=== PATIENT | female | born 1980 | race Caucasian/White ===

== ENCOUNTER → 2016-03-18 | Outpatient (CLI) | payer OTHER ==
--- NOTE | 2016-03-18 22:27 | WWHP ---
DATE OF DICTATION: 03/18/2016 CHIEF COMPLAINT: The patient is here for her routine gynecologic exam. HISTORY OF PRESENT ILLNESS: This is a 35-year-old G2, P1-0-1-1 with an LMP of 02/07/16. The patient was on oral contraception until about 1 to 2 months ago, when her prescription ran out. She has been using condoms since then. She would like to be restarted on control pills. She was given steroid injections for eczema, and she believes this is causing her period to be a little bit late. The patient is without complaints. PAST MEDICAL HISTORY: Eczema. She denies any other medical problems. MEDICATIONS: She uses a steroid cream for her eczema p.r.n. ALLERGIES: NO KNOWN DRUG ALLERGIES. PAST SURGICAL HISTORY: Unremarkable. PAST OB HISTORY: One voluntary termination of followed by a vaginal delivery. 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 She has no other history of STDs. She states her periods are generally regular every month, even without control pills. SOCIAL HISTORY: She quit smoking in 2011. She has about 6 to 12 alcoholic drinks per week and denies drug use. She is currently unemployed. She is and has been with her boyfriend for about 6 months but does not live with him. FAMILY HISTORY: Unremarkable. REVIEW OF SYSTEMS: She has lost about 15 pounds over the last 2 months, and this has been with diet. She denies respiratory, cardiac or GI problems. PHYSICAL EXAM: Blood pressure 131/84. Height 5 feet 6 inches. Weight 201 pounds. Temperature 98.0, pulse 77. This is a well-developed, well-nourished white female who is alert and oriented x3, in no acute distress. HEENT: She has several facial piercings. HEENT is otherwise unremarkable. NECK: Supple without mass or thyromegaly. CHEST AND LUNGS: Clear to auscultation. HEART: Regular rate and rhythm. Breasts are without mass or discharge. There is bilateral nipple piercing. Axillary exam negative for adenopathy. BACK: Negative for CVA tenderness. ABDOMEN: Soft, nontender, without palpable masses. PELVIC EXAM: External genitalia reveal a piercing in the area of the clitoris. External genitalia otherwise unremarkable. Cervix and vagina appear normal. There is no unusual vaginal discharge, no cervical motion tenderness. Uterus is midposition, nongravid size and nontender. There are no palpable adnexal masses or tenderness. Rectal exam is negative for mass or tenderness. EXTREMITIES: Nontender. IMPRESSION: Nxihfy-[id number]-hdyl-old gynecologically healthy female requesting oral contraception. PLAN: 1. Pap smear was performed. 2. Self breast examination was discussed. 3. GC and Chlamydia testing from the cervix has been obtained. Blood STD testing was declined by the patient. 4. The patient will start the control pills the Thursday following the onset of her next normal menstrual period. If she does not start a normal period in the next few weeks or if there is any chance of her being , she was instructed to check for . In this case, if she was , she is not to start the control pills. A prescription for Reclipsen control was given to the patient for 3 packs at a time with 3 refills. 5. She will return in one year. NEEMA
== END | disposition home or self-care (01) ==
LOC: WWCWWP 12:22
PROVIDERS: ATTEND Obstetrics & Gynecology
DX: Z11.3 Encounter for screening for infections with a predominantly sexual mode of transmission (principal)
CPT/HCPCS: 87491; 87591

== ENCOUNTER → 2017-03-25 | Outpatient (CLI) | payer OTHER ==
--- NOTE | 2017-03-25 10:01 | WWHP ---
[facility] - HISTORY AND PHYSICAL DATE OF SERVICE: 03/25/2017 CHIEF COMPLAINT: The patient is here for her routine gynecologic exam and for refill of her control pill prescription. HPI: This is a 36-year-old, G2, P1-0-1-1 with an LMP of 03/03/2017. She is on Reclipsen oral contraceptive for control. She states in July of 2016 she states she developed sores in the genital area. She was seen at an urgent care clinic and she was diagnosed with genital herpes. She did use some type of antiviral medication at that time, which gave her a headache. She states the sores resolved. They were painful at the time. She states she has not had any recurrence of the sores since then. PAST MEDICAL HISTORY: Eczema, currently not requiring medication. MEDICATION: Reclipsen oral contraception 1 daily. ALLERGIES: No known drug allergies. 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 SOCIAL HISTORY: She quit smoking in 2011 and denies any smoking at this time. She has about 6 alcohol containing drinks per week and denies drug use. She has been with her boyfriend since 2015 and does not live with him. 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 FAMILY HISTORY: Unremarkable. REVIEW OF SYSTEMS: She has gained 26 pounds over the last year. She denies respiratory, cardiac or GI problems. PHYSICAL EXAM: Blood pressure 136/80, height 5 feet 7 inches, weight 227 pounds, BMI 36, temperature 98.2, pulse 93. This is a well-developed, heavyset white female, who is alert and oriented x3, in no acute distress. HEENT is within normal limits. She does have several facial piercings. NECK: Supple without mass or thyromegaly. CHEST AND LUNGS: Clear to auscultation. HEART: Regular rate and rhythm. Breasts are without mass or discharge. She does have bilateral nipple piercing. Axillary exam is negative for adenopathy. BACK: Negative for CVA tenderness. ABDOMEN: Soft, nontender, without palpable masses. PELVIC EXAM: Normal external genitalia with a piercing of the clitoral muir. There are no lesions. Cervix and vagina appear normal. There is no unusual vaginal discharge and there is no cervical motion tenderness. The uterus is mid position, nongravid size and nontender. There are no palpable adnexal masses or tenderness. Rectal exam is negative for mass or tenderness. EXTREMITIES: Nontender. IMPRESSION: A 36-year-old gynecologically healthy female doing well on oral contraception. PLAN: 1. Pap smear was deferred since she had a normal 1 last year. 2. Self-breast examination was discussed. 3. The patient will continue on oral contraception at this time. I have recommended that she periodically check her own blood pressure. If she is having blood pressure elevations, she was instructed to call me. 4. We have discussed her increase in weight. I have recommended good nutrition and exercise. 5. She will return in 1 year. 6. She will call if she has recurrence of the genital sores. 7. A prescription for the oral contraception was given to the patient for the upcoming year. MMODL / IJN: [id number] / NEEMA
== END | disposition home or self-care (01) ==
LOC: CANPRECLI → WWCWWP 08:33
PROVIDERS: ATTEND Obstetrics & Gynecology
DX: Z53.9 Procedure and treatment not carried out, unspecified reason (principal)

== ENCOUNTER → 2018-05-18 | Outpatient (CLI) | payer OTHER ==
[2018-05-18 09:21] VITALS: BP 144/78; PULSE 113; RESP 16; TEMP 97.6; BMI 33.5
--- NOTE | 2018-05-18 10:24 | P.HPOB ---
History of Present Illness H&P Date: 05/18/18 Chief Complaint: The patient is here for her routine gynecologic exam. This is a 38-year-old with an LMP of 05/09/2018. The patient is without gynecologic complaints. She discontinued the oral contraception last summer since she is no longer sexually active and is not seeing anybody at this time. She has been trying to lose weight with diet and exercise. During this process, she had higher energy levels initially, but seems to be less energetic recently. She has lost about 21 pounds over the last year. She has had one genital HSV outbreak in the past year. Review of Systems The patient has lost 21 pounds over the last year. She denies respiratory, cardiac, or G.I. problems. She has felt less energetic recently. Past Medical History Past Medical History: No Reported History Additional Past Medical History / Comment(s): Eczema. 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 History of Any Multi-Drug Resistant Organisms: None Reported Past Surgical History: No Surgical Hx Reported Past Anesthesia/Blood Transfusion Reactions: No Reported Reaction Past Psychological History: No Psychological Hx Reported Smoking Status: Light tobacco smoker (5 cigarettes per week) Past Alcohol Use History: Occasional (6 per week) Past Drug Use History: None Reported Additional History: She is and is currently not seen anybody at this time. 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 - Past Family History Mother Family Medical History: No Reported History Medications and Allergies Home Medications Medication Instructions Recorded Confirmed Type Iron 18 mg PO 05/18/18 History Allergies Allergy/AdvReac Type Severity Reaction Status Date / Time acyclovir AdvReac Unknown Unverified 05/18/18 09:16 Exam Vital Signs Temp Pulse Resp BP Pulse Ox 05/18/18 09:17 97.6 F 113 H 16 144/78 100 Intake and Output 05/17/18 05/18/18 05/18/18 22:59 06:59 14:59 Other: Weight 94.347 kg Height 5'6", weight 208 pounds, BMI 33.6. This is a well-developed well-nourished white female who is alert and oriented times 3 in no acute distress. HEENT: Within normal limits. NECK: Supple without mass or thyromegaly. CHEST AND LUNGS: Clear to auscultation. HEART: Regular rate and rhythm. BREASTS: Are without mass or discharge. AXILLARY EXAM: Negative for adenopathy. BACK: Negative for CVA tenderness. ABDOMEN: Soft, nontender, without palpable masses. PELVIC EXAM: Normal external genitalia. Cervix and vagina appear normal. There is no unusual discharge. There is no evidence of prolapse. The uterus is midposition, nongravid size and nontender. There are no palpable adnexal masses or tenderness. RECTAL EXAM: negative for mass or tenderness and is negative for occult blood. EXTREMITIES: Nontender. IMPRESSION: 1. 38-year-old female with normal gynecologic exam. 2. She has not been sexually active recently and is not in need of control at this time. PLAN: 1. Pap smear was performed. 2. Self breast awareness was discussed with the patient. 3. STD prevention was discussed. I have stressed the importance of limiting sexual partners and using condoms if she is sexually active. 4. She is requesting screening blood tests. She currently does not have a primary care physician. I have recommended that she tried to establish with a primary care physician. Blood test today will include: CBC, TSH, comprehensive campaign out, and cholesterol. 5. She was advised to return in one year for her annual well woman exam.
[2018-05-18 11:02] LABS: HCT 44.3 % (34.0-46.0); HGB 14.6 gm/dL (11.4-16.0); MCH 29.4 pg (25.0-35.0); MCHC 32.9 g/dL (31.0-37.0); MCV 89.3 fL (80.0-100.0); Mean Platelet Volume 8.5; Platelet Count 237 k/uL (150-450); RBC 4.96 m/uL (3.80-5.40); RDW 13.4 % (11.5-15.5); WBC 4.4 k/uL (3.8-10.6)
[2018-05-18 17:06] LABS: Albumin 4.8 g/dL (3.80-4.90); Albumin/Globulin Ratio 2.29 (1.60-3.17); Anion Gap 9.6 mmol/L (4.00-12.00); Calcium 9.3 mg/dL (8.7-10.3); Carbon Dioxide 24.4 mmol/L (21.6-31.8); Globulin 2.1 g/dL (1.6-3.3); Potassium 4.8 mmol/L (3.5-5.5); Total Bilirubin 0.5 mg/dL (0.2-1.2); Total Protein 6.9 g/dL (6.2-8.2)
== END ==
LOC: WWCWWP 09:03
PROVIDERS: ATTEND Obstetrics & Gynecology
DX: Z00.00 Encounter for general adult medical examination without abnormal findings (principal)
CPT/HCPCS: 36415; 80053; 82465; 84443; 85027